=== PATIENT | male | born 1985 | race Caucasian/White ===

== ENCOUNTER 2017-01-01 08:22 | Emergency (ER) | payer MEDICARE, OTHER ==
[2017-01-01 09:30] LABS: BASO % 0.3 % (0.2-1.2); EOS # 0.3 10_X3_uL (0.0-0.5); EOS % 3.2 % (0.8-7.0); GRAN # 5.6 10_X3_uL (1.8-5.4); GRAN % 59.2 % (34.0-67.9); HEMATOCRIT 44.6 % (40-51); HEMOGLOBIN 14.6 g/dL (13.7-17.5); LYMPH # 2.8 10_X3_uL (1.3-3.6); LYMPH % 29.3 % (21.8-53.1); MEAN CORPUSCULAR HEMOGLOBIN 26.3 pg (27.0-33.0); MEAN CORPUSCULAR HGB CONC 32.7 g/dL (32.0-36.0); MEAN CORPUSCULAR VOLUME 80.4 fL (79-92); MEAN PLATELET VOLUME 11.9 fl (7.5-11.5); MONO # 0.8 10_X3_uL (0.3-0.8); PLATELET COUNT 235 x10_3/uL (163-337); RED BLOOD COUNT 5.55 x10_6/uL (4.6-6.1); RED CELL DISTRIBUTION WIDTH 15.8 % (11.6-14.4); WHITE BLOOD COUNT 9.5 x10_3/uL (4.2-9.1)
[2017-01-01 09:37] LABS: BLOOD UREA NITROGEN 13 mg/dL (7-18); CARBON DIOXIDE 27 mmol/L (21-32); CREATININE 0.7 mg/dL (0.6-1.3); GLUCOSE,RANDOM 166 mg/dL (70-99); POTASSIUM 4.5 mmol/L (3.5-5.1); SODIUM 138 mmol/L (136-145)
== END 2017-01-01 12:00 | disposition home or self-care (01) ==
LOC: ER 08:22
PROVIDERS: General Practice
DX: M51.26 Other intervertebral disc displacement, lumbar region (principal); I10 Essential (primary) hypertension; E11.9 Type 2 diabetes mellitus without complications; G89.29 Other chronic pain; M54.9 Dorsalgia, unspecified; E66.01 Morbid (severe) obesity due to excess calories; Z79.899 Other long term (current) drug therapy; Z79.84 Long term (current) use of oral hypoglycemic drugs; Z88.8 Allergy status to other drugs, medicaments and biological substances
CPT/HCPCS: 36415; 72128; 72131; 80048; 85025; 96372; 99284; 99284-25